=== PATIENT | male | born 1990 | race Caucasian/White ===

== ENCOUNTER 2018-06-13 14:16 | Emergency (ER) | payer MEDICAID ==
[2018-06-13] MEDS: LIDOCAINE 1% (MDV) 20 ML INJ SC (14:42)
== END 2018-06-13 15:19 | disposition home or self-care (01) ==
LOC: FTE 14:16
DX: S61.211A Laceration without foreign body of left index finger without damage to nail, initial encounter (principal); W26.8XXA Contact with other sharp object(s), not elsewhere classified, initial encounter; Y92.9 Unspecified place or not applicable
CPT/HCPCS: 12001; 99282-25